=== PATIENT | female | born 1980 | race Caucasian/White ===

== ENCOUNTER 2017-07-05 20:28 | Emergency (ER) | payer OTHER ==
[~2017-07-05] VITALS: Ht 175.3 cm; Wt 79.4 kg
[2017-07-05] MEDS ORDERED: LATUDA60 MG PO ×2 (20:41→21:12)
[2017-07-05] MEDS ORDERED: JANUVIA100 MG PO ×2 (20:41→21:09)
[2017-07-05] MEDS ORDERED: HALOPERIDOL 5 MG5 MG PO ×2 (20:42→21:09)
[2017-07-05] MEDS ORDERED: GLUCOPHAGE XR750 MG PO (20:42)
[2017-07-05] MEDS ORDERED: CLONAZEPAM 0.50.5 M1 PO (20:43)
[2017-07-05] MEDS ORDERED: METFORMIN HCL500 M2 PO (21:09)
[2017-07-05] MEDS ORDERED: KLONOPIN0.5 MG PO (21:09)
== END 2017-07-05 21:13 | disposition home or self-care (01) ==
LOC: ER 20:28
DX: Z76.0 Encounter for issue of repeat prescription (principal); E11.9 Type 2 diabetes mellitus without complications; F31.9 Bipolar disorder, unspecified; F41.9 Anxiety disorder, unspecified; F17.210 Nicotine dependence, cigarettes, uncomplicated; Z88.0 Allergy status to penicillin; Z88.2 Allergy status to sulfonamides; Z88.8 Allergy status to other drugs, medicaments and biological substances

== ENCOUNTER 2017-08-30 11:23 | Emergency (ER) | payer OTHER ==
[~2017-08-30] VITALS: Ht 175.3 cm; Wt 71.7 kg
[~2017-08-30 11:23] MED LIST: CLONAZEPAM 0.50.5 M1 PO; GLUCOPHAGE XR750 MG PO; HALOPERIDOL 5 MG5 MG PO; JANUVIA100 MG PO; KLONOPIN0.5 MG PO; LATUDA60 MG PO; METFORMIN HCL500 M2 PO
[2017-08-30] MEDS ORDERED: DICLOFENAC SODI75 MG PO (12:40)
== END 2017-08-30 13:05 | disposition home or self-care (01) ==
LOC: ER 11:23
DX: S20.211A Contusion of right front wall of thorax, initial encounter (principal); E11.9 Type 2 diabetes mellitus without complications; F31.9 Bipolar disorder, unspecified; F17.210 Nicotine dependence, cigarettes, uncomplicated; Z88.0 Allergy status to penicillin; Z88.2 Allergy status to sulfonamides; W00.0XXA Fall on same level due to ice and snow, initial encounter; Y93.89 Activity, other specified; Y92.89 Other specified places as the place of occurrence of the external cause; Y99.8 Other external cause status